=== PATIENT | female | born 1965 | race American Indian/Alaskan Native ===

== ENCOUNTER 2017-10-28 17:40 | Emergency (ER) | payer OTHER ==
[2017-10-28 18:18] VITALS: BP 165/144
[2017-10-28 20:25] LABS: Hematocrit 34.2 % (30.3-42.9); Hemoglobin 10.9 gm/dl (10.1-14.3); Mean Corpuscular HGB Conc 32 % (30-34); Mean Corpuscular Hemoglobin 27 pg (28-32); Mean Corpuscular Volume 84 fl (79-97); Platelet Count 450 K/mm3 (140-440); Red Blood Count 4.05 M/mm3 (3.65-5.03); Red Cell Distribution Width 14.4 % (13.2-15.2)
[2017-10-28 20:32] LABS: Albumin 3.7 g/dL (3.9-5); Calcium 8.9 mg/dL (8.4-10.2)
[2017-10-28 21:53] LABS: Basophils % (Manual) 0 % (0.0-1.8); Large Platelets 1+; Platelet Estimate Consistent w Auto; RBC Morphology Normal; Total Cells Counted 100
[2017-10-28] MEDS ORDERED: NACL 0.9% 1000 ML 1,000 ML IV ONE (23:37)
[2017-10-28] MEDS ORDERED: TORADOL IV ONE (23:37)
[2017-10-28] MEDS ORDERED: ZOFRAN IV ONE (23:38)
--- NOTE | 2017-10-28 23:38 | Emergency Department Report ---
ED Abdominal Pain HPI - General Chief Complaint: Abdominal Pain Stated Complaint: ABDOMINAL PAIN, LLQ Time Seen by Provider: 10/28/17 23:25 Source: patient Mode of arrival: Ambulatory Limitations: No Limitations - History of Present Illness Initial Comments: 52 yo seen urgent care last week she likely had a UTI was started on Keflex. She does have a history of kidney stones in the past she ended up seeing her regular doctor last week that ordered an outpatient CT. However she is still having pain and she came to the ED tonight to be seen .also has outpatient follow-up with a urologist. She was given FOR pain tramadol at the urgent care and it's not helping she is here with left sided abdominal pain and left flank pain with nausea. She denies any vomiting she denies any fever she denies any vaginal bleeding she has had a hysterectomy. She denies any vaginal discharge. She is passing gas w. normal bowel movements no diarrhea no black or bloody stool no syncope no fever no headache no chest pain.no shaking chills or fever does have of a history of previous bariatric surgery MD Complaint: abdominal pain, flank pain -: Gradual, days(s) Location: LUQ, L flank Migration to: LLQ Severity: mild, moderate Quality: cramping Consistency: intermittent Improves With: nothing Associated Symptoms: nausea. denies: vomiting, diarrhea, fever, chills, constipation, hematemesis, hematochezia, melena, anorexia, syncope - Related Data LMP (females 10-50): other (hyst) Previous Rx's Medication Instructions Recorded Last Taken Type Ondansetron [Zofran Odt] 4 mg PO TID PRN #10 tab.rapdis 10/29/17 Unknown Rx oxyCODONE /ACETAMINOPHEN [Percocet 1 tab PO Q6HR PRN #10 tablet 10/29/17 Unknown Rx 5/325] Allergies Allergy/AdvReac Type Severity Reaction Status Date / Time No Known Allergies Allergy Unverified 10/28/17 18:20 ED Review of Systems ROS: Stated complaint: ABDOMINAL PAIN, LLQ Other details as noted in HPI Comment: All other systems reviewed and negative Constitutional: denies: diaphoresis, fever, malaise, weakness ENT: denies: dental pain, hearing loss, epistaxis Respiratory: denies: shortness of breath, SOB with exertion, SOB at rest, stridor Cardiovascular: denies: chest pain, palpitations, dyspnea on exertion, orthopnea , edema, syncope, paroxysmal nocturnal dyspnea Gastrointestinal: abdominal pain, nausea. denies: vomiting, diarrhea, constipation, hematemesis, melena, hematochezia Genitourinary: denies: hematuria, discharge, abnormal menses Musculoskeletal: denies: arthralgia, myalgia Neurological: denies: headache, weakness, numbness, paresthesias, confusion, abnormal gait, vertigo Hematological/Lymphatic: denies: easy bruising, swollen glands ED Past Medical Hx - Past Medical History Additional medical history: kidney stones - Surgical History Past Surgical History?: No - Social History Smoking Status: Never Smoker Substance Use Type: None - Medications Home Medications: Home Medications Medication Instructions Recorded Confirmed Last Taken Type Ondansetron [Zofran Odt] 4 mg PO TID PRN #10 tab.rapdis 10/29/17 Unknown Rx oxyCODONE /ACETAMINOPHEN [Percocet 1 tab PO Q6HR PRN #10 tablet 10/29/17 Unknown Rx 5/325] ED Physical Exam - General Limitations: No Limitations General appearance: alert, anxious - Head Head exam: Present: atraumatic, normocephalic - Eye Eye exam: Present: PERRL, EOMI - ENT ENT exam: Present: normal exam, normal orophraynx - Neck Neck exam: Present: normal inspection. Absent: tenderness, meningismus - Respiratory Respiratory exam: Present: normal lung sounds bilaterally. Absent: respiratory distress, wheezes, rales, rhonchi, stridor, chest wall tenderness, accessory muscle use, decreased breath sounds, prolonged expiratory - Cardiovascular Cardiovascular Exam: Present: regular rate, normal rhythm, normal heart sounds. Absent: irregular rhythm, diastolic murmur, rubs, gallop - GI/Abdominal GI/Abdominal exam: Present: soft, tenderness, other (positive CVA tenderness left questionable mild left upper quadrant tenderness to deep palpation no rebound or guarding). Absent: distended, guarding, rebound, rigid, mass, pulsatile mass - Extremities Exam Extremities exam: Present: normal inspection, normal capillary refill. Absent: pedal edema, joint swelling, calf tenderness - Back Exam Back exam: Present: normal inspection, CVA tenderness (L). Absent: CVA tenderness (R), muscle spasm, paraspinal tenderness, vertebral tenderness - Neurological Exam Neurological exam: Present: alert, oriented X3, CN II-XII intact. Absent: motor sensory deficit - Psychiatric Psychiatric exam: Present: normal affect, anxious. Absent: homicidal ideation, suicidal ideation - Skin Skin exam: Absent: cyanosis, diaphoretic, erythema, urticaria, vesicles, petechiae, pallor, ecchymosis ED Course Vital Signs 10/28/17 10/28/17 18:13 23:57 Temperature 98.5 F Pulse Rate 77 Respiratory 16 Rate Blood Pressure 165/144 O2 Sat by Pulse 98 95 Oximetry - Reevaluation(s) Reevaluation #1: 10/29/17 00:01 Patient was placed in room, pain control was instituted, laboratory studies were ordered as well as CT, vs:iir=[id number], remainder vss, afeb 10/29/17 00:02 ED Medical Decision Making - Lab Data Result diagrams: 10/28/17 19:40 10/28/17 19:40 - Radiology Data Radiology results: report reviewed - Medical Decision Making Ct result shows chronic left hydronephrosis with 3 partially obstructing stones one is 10 mm.pt was hydrated, ivf and pain control, bun is22 cr is 1.3. case is d/w gu Dr. jacobs, case d/w mac, pt is improved in ed, nontoxic, nl wbc, vss and afeb, pt is likely outpt candidate and they can see pt in am, npo after midnight. no shaking chills or fever and nl wbc.and stable for outpt f/u in am Critical care attestation.: If time is entered above; I have spent that time in minutes in the direct care of this critically ill patient, excluding procedure time. ED Disposition Clinical Impression: Ureterolithiasis Disposition: DC-01 TO HOME OR SELFCARE Is pt being admited?: No Condition: Stable Instructions: Abdominal Pain (ED), Kidney Stones (ED) Additional Instructions: See Dr. Jacobsat 0845 a.m. tomorrow return for alarming symptoms nothing TO eat or drink after midnight., Continue your antibiotics Prescriptions: Ondansetron [Zofran Odt] 4 mg PO TID PRN #10 tab.rapdis PRN Reason: Nausea oxyCODONE /ACETAMINOPHEN [Percocet 5/325] 1 tab PO Q6HR PRN #10 tablet PRN Reason: Pain Referrals: PRIMARY CARE, [Primary Care Provider] - 3-5 Days Time of Disposition: 01:08
--- NOTE | 2017-10-29 00:24 | Cat Scan Report ---
FINAL REPORT EXAM: CT ABDOMEN PELVIS WO CON HISTORY: flank pain NATHAN BACK PAIN MAINLY ON LEFT TECHNIQUE: Routine axial imaging was obtained of the abdomen and pelvis without oral or IV contrast. Sagittal and coronal reconstructions were reviewed. FINDINGS: The lung bases are clear. Pleural fluid is not seen. The liver, gallbladder, pancreas, and spleen appear normal. The adrenal glands appear normal. There are multiple surgical clips in the upper abdomen compatible with previous gastric bypass surgery changes. Additional surgical to seen in left side of the abdomen. There is severe left-sided hydronephrosis. There are total of 3 partially obstructing stones in the distal left ureter the largest measuring 10.4 millimeters in diameter. There are multiple 2-3 millimeter in diameter stones in the lower pole of the left kidney. The right kidney view is a prominent extrarenal pelvis. No definite stone is seen in the right ureter. There is no evidence of right-sided hydronephrosis. The bowel loops are normal in caliber. The appendix is not seen with certainty. In the pelvis the uterus and bladder appear normal. Free fluid is not seen. The skeletal structures are unremarkable. IMPRESSION: Severe chronic left-sided hydronephrosis. There are total of 3 partially obstructing stones in the distal ureter the largest measuring 10.4 millimeters in diameter. Multiple small nonobstructing stones in the lower pole of left kidney. Previous gastric bypass surgery changes.
[2017-10-29] MEDS ORDERED: DILAUDID IV ONE (01:10)
[2017-10-29] MEDS ORDERED: ZOFRAN ODT PO ONE (01:11)
== END 2017-10-29 04:43 | disposition home or self-care (01) ==
LOC: ED 17:40
DX: N20.1 Calculus of ureter (principal)
CPT/HCPCS: 36415; 74176; 80053; 83690; 85007; 85025; 96361; 96374; 96375; 99284; J1170; J1885; J2405; J7030; Q0162

== ENCOUNTER 2017-10-29 10:45 | Inpatient (IN) | payer OTHER ==
[2017-10-29] MEDS ORDERED: NACL 0.9% 1000 ML 1,000 ML IV ONE (16:00)
--- NOTE | 2017-10-29 16:04 | Emergency Department Report ---
ED Female HPI - General Chief complaint: Abdominal Pain Stated complaint: SIDE/BACK PAIN Time Seen by Provider: 10/29/17 15:46 Source: patient Mode of arrival: Ambulatory Limitations: No Limitations - History of Present Illness Initial comments: 52-year-old female the past medical history of previous kidney stones presents to Hospital base of the flank pain for 2 weeks. Patient was seen and evaluated in the ER here last night. CT abdomen and pelvis report reviewed: Severe chronic left sided hydronephrosis. Total of 3 partially obstructing stones in the distal ureter with the largest measuring 10.4 mm in diameter. Multiple small amounts small nonobstructing stones in the lower pole of the left kidney. Previous gastric bypass surgery changes. Patient followed up with Dr. Dc this morning as instructed to return to the ER for admission and to receive a nuclear renal scan. Patient took a Percocet prior to arrival pain is controlled at this time. Patient reports that pain has been sharp, upper left flank, intermittent, with palpation, and no alleviating factors. Devine associate nausea without vomiting. No dysuria or hematuria reported. - Related Data Home Medications Medication Instructions Recorded Confirmed Last Taken Estradiol [Estrace] 1 mg PO DAILY 10/29/17 10/29/17 10/28/17 Zolpidem [Ambien] 10 mg PO QHS 10/29/17 10/29/17 10/28/17 Previous Rx's Medication Instructions Recorded Last Taken Type Ondansetron [Zofran Odt] 4 mg PO TID PRN #10 tab.rapdis 10/29/17 10/28/17 Rx oxyCODONE /ACETAMINOPHEN [Percocet 1 tab PO Q6HR PRN #10 tablet 10/29/17 Rx 5/325] Allergies Allergy/AdvReac Type Severity Reaction Status Date / Time No Known Allergies Allergy Unverified 10/28/17 18:20 ED Review of Systems ROS: Stated complaint: SIDE/BACK PAIN Other details as noted in HPI Comment: All other systems reviewed and negative Other: Constitutional: No fevers chills or weight loss Eyes: No eye pain visual changes or discharge ENT: No ear pain or throat pain Neck: Denies pain Respiratory: Denies cough wheezing shortness of breath Cardiovascular: Denies chest pain, palpitations, syncope GI: As per HPI : Denies dysuria Musculoskeletal: Denies back pain, joint swelling Skin: Denies rash, lesions, erythema Neurologic: Denies headache, numbness, weakness Psychiatric: Denies suicidal ideation, hallucinations Hematological/lymphatic: Denies easy bruising, lymphadenopathy ED Past Medical Hx - Past Medical History Additional medical history: kidney stones - Surgical History Past Surgical History?: Yes Additional Surgical History: Hysterectomy, Gastric Bypass, SBO - Social History Smoking Status: Never Smoker Substance Use Type: Alcohol - Medications Home Medications: Home Medications Medication Instructions Recorded Confirmed Last Taken Type Estradiol [Estrace] 1 mg PO DAILY 10/29/17 10/29/17 10/28/17 History Ondansetron [Zofran Odt] 4 mg PO TID PRN #10 tab.rapdis 10/29/17 10/29/17 Rx Zolpidem [Ambien] 10 mg PO QHS 10/29/17 10/29/17 10/28/17 History oxyCODONE /ACETAMINOPHEN [Percocet 1 tab PO Q6HR PRN #10 tablet 10/29/1710/28/17 Rx 5/325] ED Physical Exam - General Limitations: No Limitations - Other Other exam information: General: No limitations, patient is alert in no acute distress Head exam: Atraumatic, normocephalic Eyes exam: Normal appearance ENT: Moist mucous membrane, normal oropharynx Neck exam: Normal inspection, full range of motion Respiratory exam: Clear to auscultation bilateral, no wheezes, rales, crackles Cardiovascular: Normal rate and rhythm, normal heart sounds Abdomen: Soft, nondistended, left upper quadrant and left flank tenderness to palpation. No rebound or guarding Extremity: Full range of motion normal inspection no deformity Back: Normal Inspection, full range of motion, no tenderness Neurologic: Alert, oriented x3, cranial nerves intact, no motor or sensory deficit Psychiatric: normal affect, normal mood Skin: Warm, dry, intact ED Course Vital Signs 10/29/17 10/29/17 10/29/17 11:01 14:43 17:10 Temperature 97.9 F Pulse Rate 77 74 66 Respiratory 20 20 12 Rate Blood Pressure 108/65 106/68 Blood Pressure 122/73 [Left] O2 Sat by Pulse 97 97 99 Oximetry ED Medical Decision Making - Lab Data Result diagrams: 10/29/17 16:28 10/29/17 16:28 Lab Results 10/29/17 10/29/17 10/29/17 Range/Units 16:20 16:28 16:28 WBC 6.1 (4.5-11.0) K/mm3 RBC 3.99 (3.65-5.03) M/mm3 Hgb 10.9 (10.1-14.3) gm/dl Hct 33.3 (30.3-42.9) % MCV 83 (79-97) fl MCH 27 L (28-32) pg MCHC 33 (30-34) % RDW 14.4 (13.2-15.2) % Plt Count 401 (140-440) K/mm3 Lymph % (Auto) 17.5 (13.4-35.0) % [place] % (Auto) 13.7 H (0.0-7.3) % Eos % (Auto) 1.1 (0.0-4.3) % Baso % (Auto) 1.1 (0.0-1.8) % Lymph # 1.1 L (1.2-5.4) K/mm3 [place] # 0.8 (0.0-0.8) K/mm3 Eos # 0.1 (0.0-0.4) K/mm3 Baso # 0.1 (0.0-0.1) K/mm3 Seg Neutrophils % 66.6 (40.0-70.0) % Seg Neutrophils # 4.0 (1.8-7.7) K/mm3 Sodium 143 (137-145) mmol/L Potassium 4.9 (3.6-5.0) mmol/L Chloride 104.3 (98-107) mmol/L Carbon Dioxide 20 L (22-30) mmol/L Anion Gap 24 mmol/L BUN 23 H (7-17) mg/dL Creatinine 1.3 H (0.7-1.2) mg/dL Estimated GFR 52 ml/min BUN/Creatinine Ratio 18 % Glucose 79 (65-100) mg/dL POC Glucose 74 (70-105) Calcium 8.8 (8.4-10.2) mg/dL - Medical Decision Making Labs from yesterday reviewed. CT from yesterday reviewed. Patient be admitted through the ER per Dr. Restrepo request for further kidney stone treatment - Differential Diagnosis renal colic, UTI, obstructive uropathy Critical Care Time: No Critical care attestation.: If time is entered above; I have spent that time in minutes in the direct care of this critically ill patient, excluding procedure time. ED Disposition Clinical Impression: Ureterolithiasis, Renal colic on left side, Hydronephrosis Disposition: OP ADMIT IP TO THIS HOSP Is pt being admited?: Yes Condition: Stable Time of Disposition: 16:03 (Dr das/hosp)
[2017-10-29 17:01] LABS: Calcium 8.8 mg/dL (8.4-10.2)
[2017-10-29 17:31] LABS: Basophils # (Auto) 0.1 K/mm3 (0.0-0.1); Basophils % (Auto) 1.1 % (0.0-1.8); Eosinophils # (Auto) 0.1 K/mm3 (0.0-0.4); Eosinophils % (Auto) 1.1 % (0.0-4.3); Hematocrit 33.3 % (30.3-42.9); Hemoglobin 10.9 gm/dl (10.1-14.3); Lymphocytes # (Auto) 1.1 K/mm3 (1.2-5.4); Lymphocytes % (Auto) 17.5 % (13.4-35.0); Mean Corpuscular HGB Conc 33 % (30-34); Mean Corpuscular Hemoglobin 27 pg (28-32); Mean Corpuscular Volume 83 fl (79-97); Monocytes # (Auto) 0.8 K/mm3 (0.0-0.8); Monocytes % (Auto) 13.7 % (0.0-7.3); Platelet Count 401 K/mm3 (140-440); Red Blood Count 3.99 M/mm3 (3.65-5.03); Red Cell Distribution Width 14.4 % (13.2-15.2)
[2017-10-29] MEDS ORDERED: ZOFRAN IV PRN (19:24)
[2017-10-29] MEDS ORDERED: AMBIEN PO PRN (19:46)
[2017-10-29] MEDS: DILAUDID IV PRN (19:49)
[2017-10-29] MEDS: BENADRYL IV PRN (21:08)
--- NOTE | 2017-10-29 23:55 | Event Note ---
Date: 10/29/17 52 year old female with left sided renal calculi who presents with left sided flank pain. CT demonstrates extensive calculi in the lower most anterior calyx of the left kidney and obstructing left sided calculi in the distal ureter. Right extrarenal pelvis without hydronephrosis and left sided moderate hydronephrosis. Patient has mild renal insufficiency. NPO after MN. Nuclear medicine test in AM. Will discuss with Dr. Jasso.
--- NOTE | 2017-10-29 23:56 | Event Note ---
Date: 10/29/17 See dictated H/P in reports L Renal stones with Hydronephrosis-Nuclear scan onOct to assess functionality of Rt Kidney D/w Dr Jasso. Ureter stent versus Nephrectomy depending on Functionalityof L Kidney
[2017-10-30] MEDS ORDERED: PERCOCET 5/325 PO PRN (00:49)
[2017-10-30] MEDS ORDERED: MILK OF MAGNESIA PO PRN (00:50)
[2017-10-30] MEDS ORDERED: TYLENOL PO PRN (00:50)
[2017-10-30] MEDS ORDERED: DULCOLAX PR PRN (00:50)
[2017-10-30] MEDS ORDERED: MORPHINE IV PRN (01:42)
[2017-10-30] MEDS: DILAUDID IV PRN ×4 (05:46→22:07)
[2017-10-30] MEDS: ZOFRAN IV PRN ×2 (05:50→11:11)
[2017-10-30] MEDS: BENADRYL IV PRN ×2 (05:51→16:35)
--- NOTE | 2017-10-30 07:55 | History and Physical Report ---
CHIEF COMPLAINT: Left flank pain for 2 weeks. HISTORY OF PRESENT ILLNESS: A 52-year-old -[place] female who comes in for left flank pain of 2 weeks' duration. The patient has recurrent partial obstructing stones in the distal ureter with the largest measuring 10.4 mm. The patient was seen by Dr. Jasso shows up for a possible ureter stent. I talked with Dr. Jasso. He also wants to make sure that the left kidney is functioning because of the longstanding hydronephrosis. No fever, no chills. PAST MEDICAL HISTORY: Significant for recurrent kidney stones. No hypertension. PAST SURGICAL HISTORY: Hysterectomy, gastric bypass and small-bowel obstruction. SOCIAL HISTORY: Does not smoke. Alcohol occasionally. FAMILY HISTORY: Hypertension. CURRENT MEDICATIONS: Estradiol 1 mg once a day, Zofran 4 mg 3 times a day, zolpidem 10 mg p.o. at bedtime, Percocet 1 tablet 5/325 mg q.6h. p.r.n. REVIEW OF SYSTEMS: Other than the left flank pain, essentially negative. A 14-point review of systems done. No shortness of breath. No fever, no chills. Altered sensorium. PHYSICAL EXAMINATION: GENERAL: Middle-aged female, cooperative during examination, in slight distress secondary to pain. VITAL SIGNS: Blood pressure is 123/80, temperature is 98.7, pulse . HEENT: Unremarkable. Pupils equal and reactive. NECK: Supple, no lymphadenopathy, no thyromegaly. LUNGS: Clear to auscultation and percussion. Good air entry. CARDIOVASCULAR: S1, S2 heard. No gallop, no murmur, no rub. Apical impulse in left fifth intercostal space and midclavicular line. ABDOMEN: Soft and benign. No hepatosplenomegaly. No guarding, no rigidity. Hernial orifices are normal. EXTREMITIES: Good pedal pulses. No pedal edema. ABDOMEN: The examination of the abdomen, there is a slight left flank tenderness present. No guarding, no rigidity. CT of the abdomen shows 3 stones in the left ureter and left hydronephrosis. LABORATORY DATA: Otherwise normal. BUN and creatinine slightly high at 23 and 1.3. ASSESSMENT AND PLAN: 1. Left renal colic with hydronephrosis. The patient due for ureteral stent placement on 10/30/2017. Discussed with Dr. Jasso. Dr. Jasso wants to make sure that the left kidney is functioning. If the left kidney is not functioning, he will go for a left nephrectomy. Nuclear scan pending on 10/30/2017. 2. Acute pain. Pain management. IV Dilaudid and Toradol. 3. Acute kidney injury. IV fluids for the time being. BUN and creatinine is 23 and 1.3. 4. Deep venous thrombosis prophylaxis, Lovenox 40 mg subcutaneous daily. JOB# [id number] VSM/NTS
--- NOTE | 2017-10-30 09:28 | Event Note ---
Date: 10/30/17 52 year old female with left sided renal calculi and hydronephrosis. Renal cortical thickness is similar on both sides suggesting residual kidney function. Dr. Jasso will perform cystoscopy/stent placement on thursday. If unsuccessful or clinical situation changes, may need percutaneous nephrostomy. Restored diet.
--- NOTE | 2017-10-30 10:42 | Progress Note ---
Assessment and Plan Assessment and plan: Patient is a 52 year old female with left flank pain x 2 weeks, diagnosed with obstructing ureter stones with largest measuring 10.4mm and hydronephrosis. Per patient she completed a treatment for UTI in the last week with ciprofloxacin Left renal calculi with hydronephrosis Left Peritoneal irritation HTN Plan: Pain control Supportive care with IVF Possibly cystoscopy vs nephrectomy Await Urology input. Patient wants to remain in house till procedure, again will defer to Urologist. DVT/GI prophy Plan discussed with patient and vascular surgeon History Interval history: Patient seen and examined in no acute distress. still with back pain. she denies any shortness of breath, nausea, vomiting. she denies any fever. Hospitalist Physical - Constitutional Vitals: Temp Pulse Resp BP Pulse Ox 99.2 F 83 20 110/66 96 10/30/17 07:33 10/30/17 07:33 10/30/17 07:33 10/30/17 07:33 10/30/17 07:33 General appearance: Present: no acute distress, well-nourished - EENT Eyes: Present: PERRL, EOM intact ENT: clear oral mucosa - Neck Neck: Present: supple, normal ROM - Respiratory Respiratory effort: normal Respiratory: bilateral: CTA - Cardiovascular Rhythm: regular Heart Sounds: Present: S1 & S2. Absent: systolic murmur, diastolic murmur - Extremities Extremities: no ischemia, pulses intact, pulses symmetrical, No edema, normal temperature, Full ROM Peripheral Pulses: within normal limits - Abdominal General gastrointestinal: soft, tender (llq), non-distended, normal bowel sounds - Integumentary Integumentary: Present: clear, warm, dry - Psychiatric Psychiatric: appropriate mood/affect, intact judgment & insight - Neurologic Neurologic: CNII-XII intact - Allied Health Allied health notes reviewed: nursing Results - Labs CBC & Chem 7: 10/29/17 16:28 10/29/17 16:28 Labs: Laboratory Last Values WBC 6.1 K/mm3 (4.5-11.0) 10/29/17 16:28 RBC 3.99 M/mm3 (3.65-5.03) 10/29/17 16:28 Hgb 10.9 gm/dl (10.1-14.3) 10/29/17 16:28 Hct 33.3 % (30.3-42.9) 10/29/17 16: MCV 83 fl (79-97) 10/29/17 16: MCH 27 pg (28-32) L 10/29/17 16: MCHC 33 % (30-34) 10/29/17 16: RDW 14.4 % (13.2-15.2) 10/29/17 16: Plt Count 401 K/mm3 (140-440) 10/29/17 16: Lymph % (Auto) 17.5 % (13.4-35.0) 10/29/17 16: [place] % (Auto) 13.7 % (0.0-7.3) H 10/29/17 16: Eos % (Auto) 1.1 % (0.0-4.3) 10/29/17 16: Baso % (Auto) 1.1 % (0.0-1.8) 10/29/17 16: Lymph # 1.1 K/mm3 (1.2-5.4) L 10/29/17 16: [place] # 0.8 K/mm3 (0.0-0.8) 10/29/17 16: Eos # 0.1 K/mm3 (0.0-0.4) 10/29/17 16: Baso # 0.1 K/mm3 (0.0-0.1) 10/29/17 16: Seg Neutrophils % 66.6 % (40.0-70.0) 10/29/17 16: Seg Neutrophils # 4.0 K/mm3 (1.8-7.7) 10/29/17 16: Sodium 143 mmol/L (137-145) 10/29/17 16: Potassium 4.9 mmol/L (3.6-5.0) 10/29/17 16: Chloride 104.3 mmol/L (98-107) 10/29/17 16: Carbon Dioxide 20 mmol/L (22-30) L 10/29/17 16: Anion Gap 24 mmol/L 10/29/17 16:28 BUN 23 mg/dL (7-17) H 10/29/17 16:28 Creatinine 1.3 mg/dL (0.7-1.2) H 10/29/17 16:28 Estimated GFR 52 ml/min 10/29/17 16:28 BUN/Creatinine Ratio 18 % 10/29/17 16:28 Glucose 79 mg/dL (65-100) 10/29/17 16:28 POC Glucose 74 (70-105) 10/29/17 16:20 Calcium 8.8 mg/dL (8.4-10.2) 10/29/17 16:28
--- NOTE | 2017-10-30 11:33 | Nuclear Medicine Report ---
NUCLEAR MEDICINE RENAL SCAN ROUTINE History: Kidney stone, nephrolithiasis, evaluate renal function. Technique: Posterior perfusion and function images were obtained following 5 mCi of technetium 99m MAG3 intravenously. Renogram curves were constructed. Comparison: No previous nuclear medicine scan. Correlation is made with the CT abdomen pelvis without contrast dated 10/29/17. Findings: The posterior perfusion and posterior function images demonstrate asymmetric activity in the kidneys. There is decreased perfusion and function of the left kidney compared to the right. Perfusion and function of the right kidney appears within normal limits. Peak flow to the right kidney is approximately 15 seconds. Peak flow to left kidney is greater than 60 seconds. The posterior function images demonstrate poor uptake and excretion of radiotracer on the left side. Split function measures 67% right kidney and 33% left kidney. Impression: Poor flow and function involving the left kidney. Split function measures 67% right kidney and 33% left kidney.
[2017-10-30] MEDS ORDERED: PNEUMOVAX 23 IM ONE (12:00)
[2017-10-30] MEDS ORDERED: Fluarix Quad 2017-2018(36 MOS+ IM ONE (12:00)
[2017-10-30 12:01] LABS: Bacteria,Urine 2+ /HPF (Negative); Bilirubin,Urine NEG (Negative); Blood,Urine LG (Negative); Color,Urine Yellow (Yellow); Mucus,Urine FEW /HPF; Nitrite,Urine NEG (Negative)
[2017-10-30] MEDS: ESTRACE PO SCH (12:20)
--- NOTE | 2017-10-30 12:40 | Progress Note ---
Assessment and Plan 33% fx LK will sched cysto aware may need perc all disccussed informed consentr to sched dictated Subjective Date of service: 10/30/17 Principal diagnosis: L hydro stones Objective - Constitutional Vitals: Vital Signs - 12hr 10/30/17 07:33 Temperature 99.2 F Pulse Rate 83 Respiratory 20 Rate Blood Pressure 110/66 O2 Sat by Pulse 96 Oximetry General appearance: Present: no acute distress - Neck Neck: supple - Respiratory Respiratory effort: normal Extremities: no ischemia - Gastrointestinal General gastrointestinal: Present: tender - Labs CBC & Chem 7: 10/29/17 16:28 10/29/17 16:28 Labs: Abnormal lab results 10/29/17 10/29/17 Range/Units 16:28 16:28 MCH 27 L (28-32) pg [place] % (Auto) 13.7 H (0.0-7.3) % Lymph # 1.1 L (1.2-5.4) K/mm3 Carbon Dioxide 20 L (22-30) mmol/L BUN 23 H (7-17) mg/dL Creatinine 1.3 H (0.7-1.2) mg/dL
[2017-10-30] MEDS: LEVAQUIN 500MG/100ML 500 MG/100 ML BAG IV SCH (16:35)
[2017-10-30] MEDS: ZOFRAN ODT PO PRN (16:42)
[2017-10-30] MEDS: NACL 0.9% 1000 ML 1,000 ML IV SCH (16:49)
[2017-10-30] MEDS: AMBIEN PO SCH (22:06)
[2017-10-31] MEDS: ZOFRAN IV PRN ×3 (05:46→20:15)
[2017-10-31] MEDS: BENADRYL IV PRN ×3 (05:46→20:15)
[2017-10-31] MEDS: DILAUDID IV PRN ×4 (05:47→20:15)
[2017-10-31] MEDS: NACL 0.9% 1000 ML 1,000 ML IV SCH ×2 (07:16→22:44)
[2017-10-31 07:39] LABS: Calcium 8.3 mg/dL (8.4-10.2)
--- NOTE | 2017-10-31 08:39 | Consultation ---
HISTORY OF PRESENT ILLNESS: The patient is a 52-year-old woman who we saw in the office yesterday, we are scheduling her for cystoscopy. She has had stones for over a year. She did not get it evaluated because her pain went away and she did not seek medical advice. She had moderate pain yesterday. We tried to schedule her, we were told we were not able to. So, she came back to the Emergency Room. She is now admitted for intermittent pain control and IV antibiotics. She is here with her mother, all options were discussed. PAST MEDICAL HISTORY: As mentioned above, history of stones, and low grade fever on and off. PAST SURGICAL HISTORY: Denied surgery. Other surgery, hysterectomy, gastric bypass, small-bowel obstruction. SOCIAL HISTORY: Negative. FAMILY HISTORY: Negative. MEDICATIONS: Estrace, pain medication and antinausea medication. REVIEW OF SYSTEMS: As mentioned above, left flank pain. PHYSICAL EXAMINATION: GENERAL: She is awake, alert. She is in no distress but some mild discomfort. ABDOMEN: Soft, nondistended, mild left flank pain. GENITALIA: Done yesterday was unremarkable. IMPRESSION AND PLAN: Left hydronephrosis, 33% function on her nuclear scan. We will try our best to get a stent passed the stone, likely staged procedures in terms of the stones, but we will try to get the stone out if possible. Otherwise, she will need a percutaneous nephrostomy. The patient understands. We will make her n.p.o. and do it over the next few days, give her IV antibiotics. JOB# [id number] ROB/ROSCOE
[2017-10-31] MEDS: ESTRACE PO SCH (09:40)
[2017-10-31] MEDS: LEVAQUIN 500MG/100ML 500 MG/100 ML BAG IV SCH (09:40)
[2017-10-31] MEDS: ZOFRAN ODT PO PRN (09:57)
--- NOTE | 2017-10-31 17:49 | Progress Note ---
Assessment and Plan Assessment and plan: Patient is a 52 year old female with left flank pain x 2 weeks, diagnosed with obstructing ureter stones with largest measuring 10.4mm and hydronephrosis. Per patient she completed a treatment for UTI in the last week with ciprofloxacin Left renal calculi with hydronephrosis Left Peritoneal irritation HTN DOMENICO Plan: Pain control Supportive care with IVF cYSTOSCOPY ON THURSDAY uROLOGY INPUT NOTED Continue with IVF before the better Await Urology input.. DVT/GI prophy Plan discussed with patient and vascular surgeon History Interval history: Patient seen and examined in no acute distress. still with back pain. she denies any shortness of breath, nausea, vomiting. she denies any fever. Hospitalist Physical - Physical exam Narrative exam: General appearance: Present: no acute distress, well-nourished - EENT Eyes: Present: PERRL, EOM intact ENT: clear oral mucosa - Neck Neck: Present: supple, normal ROM - Respiratory Respiratory effort: normal Respiratory: bilateral: CTA - Cardiovascular Rhythm: regular Heart Sounds: Present: S1 & S2. Absent: systolic murmur, diastolic murmur - Extremities Extremities: no ischemia, pulses intact, pulses symmetrical, No edema, normal temperature, Full ROM Peripheral Pulses: within normal limits - Abdominal General gastrointestinal: soft, tender (llq), non-distended, normal bowel sounds - Integumentary Integumentary: Present: clear, warm, dry - Psychiatric Psychiatric: appropriate mood/affect, intact judgment & insight - Neurologic Neurologic: CNII-XII intact - Allied Health Allied health notes rev - Constitutional Vitals: Temp Pulse Resp BP Pulse Ox 98.4 F 66 18 120/80 95 10/31/17 15:44 10/31/17 07:36 10/31/17 15:44 10/31/17 15:44 10/31/17 07:36 General appearance: Present: no acute distress, well-nourished Results - Labs CBC & Chem 7: 10/29/17 16:28 10/31/17 06:26 Labs: Laboratory Last Values WBC 6.1 K/mm3 (4.5-11.0) 10/29/17 16:28 RBC 3.99 M/mm3 (3.65-5.03) 10/29/17 16:28 Hgb 10.9 gm/dl (10.1-14.3) 10/29/17 16:28 Hct 33.3 % (30.3-42.9) 10/29/17 16: MCV 83 fl (79-97) 10/29/17 16: MCH 27 pg (28-32) L 10/29/17 16:28 MCHC 33 % (30-34) 10/29/17 16:28 RDW 14.4 % (13.2-15.2) 10/29/17 16:28 Plt Count 401 K/mm3 (140-440) 10/29/17 16:28 Lymph % (Auto) 17.5 % (13.4-35.0) 10/29/17 16:28 [place] % (Auto) 13.7 % (0.0-7.3) H 10/29/17 16:28 Eos % (Auto) 1.1 % (0.0-4.3) 10/29/17 16:28 Baso % (Auto) 1.1 % (0.0-1.8) 10/29/17 16:28 Lymph # 1.1 K/mm3 (1.2-5.4) L 10/29/17 16:28 [place] # 0.8 K/mm3 (0.0-0.8) 10/29/17 16:28 Eos # 0.1 K/mm3 (0.0-0.4) 10/29/17 16:28 Baso # 0.1 K/mm3 (0.0-0.1) 10/29/17 16:28 Seg Neutrophils % 66.6 % (40.0-70.0) 10/29/17 16:28 Seg Neutrophils # 4.0 K/mm3 (1.8-7.7) 10/29/17 16:28 Sodium 144 mmol/L (137-145) 10/31/17 06:26 Potassium 4.3 mmol/L (3.6-5.0) 10/31/17 06:26 Chloride 108.5 mmol/L (98-107) H 10/31/17 06:26 Carbon Dioxide 22 mmol/L (22-30) 10/31/17 06:26 Anion Gap 18 mmol/L 10/31/17 06:26 BUN 30 mg/dL (7-17) H 10/31/17 06:26 Creatinine 1.6 mg/dL (0.7-1.2) H 10/31/17 06:26 Estimated GFR 41 ml/min 10/31/17 06:26 BUN/Creatinine Ratio 19 % 10/31/17 06:26 Glucose 97 mg/dL (65-100) 10/31/17 06:26 POC Glucose 74 (70-105) 10/29/17 16:20 Calcium 8.3 mg/dL (8.4-10.2) L 10/31/17 06:26 Urine Color Yellow (Yellow) 10/30/17 Unknown Urine Turbidity Clear (Clear) 10/30/17 Unknown Urine pH 5.0 (5.0-7.0) 10/30/17 Unknown Ur Specific [place] 1.021 (1.003-1.030) 10/30/17 Unknown Urine Protein 100 mg/dl mg/dL (Negative) 10/30/17 Unknown Urine Glucose (UA) Neg mg/dL (Negative) 10/30/17 Unknown Urine Ketones 20 mg/dL (Negative) 10/30/17 Unknown Urine Blood Lg (Negative) 10/30/17 Unknown Urine Nitrite Neg (Negative) 10/30/17 Unknown Urine Bilirubin Neg (Negative) 10/30/17 Unknown Urine Urobilinogen 2.0 mg/dL (<2.0) 10/30/17 Unknown Ur Leukocyte Esterase Neg (Negative) 10/30/17 Unknown Urine WBC (Auto) 4.0 /HPF (0.0-6.0) 10/30/17 Unknown Urine RBC (Auto) 27.0 /HPF (0.0-6.0) 10/30/17 Unknown U Epithel Cells (Auto) 4.0 /HPF (0-13.0) 10/30/17 Unknown Urine Bacteria (Auto) 2+ /HPF (Negative) 10/30/17 Unknown Urine Mucus Few /HPF 10/30/17 Unknown
[2017-10-31] MEDS: AMBIEN PO SCH (22:44)
[2017-11-01] MEDS: DILAUDID IV PRN ×5 (00:36→20:33)
[2017-11-01] MEDS: BENADRYL IV PRN ×3 (04:22→20:33)
[2017-11-01] MEDS: ZOFRAN IV PRN ×4 (04:22→20:33)
[2017-11-01 06:48] LABS: Calcium 7.7 mg/dL (8.4-10.2)
[2017-11-01] MEDS: LEVAQUIN 500MG/100ML 500 MG/100 ML BAG IV SCH (09:25)
[2017-11-01] MEDS: ESTRACE PO SCH (09:25)
[2017-11-01] MEDS: NACL 0.9% 1000 ML 1,000 ML IV SCH ×2 (12:57→20:34)
--- NOTE | 2017-11-01 14:05 | Progress Note ---
Assessment and Plan - Patient Problems (1) Hydronephrosis Current Visit: Yes Status: Acute Plan to address problem: Hydronephrosis secondary to stone. Cystoscopy planned for a.m. Pain management effective. (2) Renal colic on left side Current Visit: Yes Status: Acute (3) Ureterolithiasis Current Visit: Yes Status: Acute History Interval history: At present patient feels good pain well controlled. Only itching with the Benadryl with pain medications. Patient scheduled for cystoscopy in the a.m. All questions and concerns answered to his satisfaction. Hospitalist Physical - Constitutional Vitals: Temp Pulse Resp BP Pulse Ox 98.5 F 75 16 111/67 95 11/01/17 07:46 11/01/17 07:46 11/01/17 07:46 11/01/17 07:46 11/01/17 07:46 General appearance: Present: no acute distress, well-nourished - EENT Eyes: Present: PERRL, EOM intact ENT: hearing intact, clear oral mucosa, dentition normal - Neck Neck: Present: supple, normal ROM - Respiratory Respiratory effort: normal Respiratory: bilateral: CTA - Cardiovascular Rhythm: regular Heart Sounds: Present: S1 & S2 - Extremities Extremities: no ischemia, pulses intact, No edema, normal temperature, normal color Peripheral Pulses: within normal limits - Abdominal General gastrointestinal: soft, non-tender, non-distended - Psychiatric Psychiatric: appropriate mood/affect, intact judgment & insight - Neurologic Neurologic: CNII-XII intact, moves all extremities, gait normal Results - Labs CBC & Chem 7: 10/29/17 16:28 11/01/17 05:19 Labs: Laboratory Last Values WBC 6.1 K/mm3 (4.5-11.0) 10/29/17 16:28 RBC 3.99 M/mm3 (3.65-5.03) 10/29/17 16:28 Hgb 10.9 gm/dl (10.1-14.3) 10/29/17 16:28 Hct 33.3 % (30.3-42.9) 10/29/17 16:28 MCV 83 fl (79-97) 10/29/17 16:28 MCH 27 pg (28-32) L 10/29/17 16:28 MCHC 33 % (30-34) 10/29/17 16:28 RDW 14.4 % (13.2-15.2) 10/29/17 16:28 Plt Count 401 K/mm3 (140-440) 10/29/17 16:28 Lymph % (Auto) 17.5 % (13.4-35.0) 10/29/17 16:28 [place] % (Auto) 13.7 % (0.0-7.3) H 10/29/17 16:28 Eos % (Auto) 1.1 % (0.0-4.3) 10/29/17 16:28 Baso % (Auto) 1.1 % (0.0-1.8) 10/29/17 16:28 Lymph # 1.1 K/mm3 (1.2-5.4) L 10/29/17 16:28 [place] # 0.8 K/mm3 (0.0-0.8) 10/29/17 16:28 Eos # 0.1 K/mm3 (0.0-0.4) 10/29/17 16:28 Baso # 0.1 K/mm3 (0.0-0.1) 10/29/17 16:28 Seg Neutrophils % 66.6 % (40.0-70.0) 10/29/17 16:28 Seg Neutrophils # 4.0 K/mm3 (1.8-7.7) 10/29/17 16:28 Sodium 141 mmol/L (137-145) 11/01/17 05:19 Potassium 4.4 mmol/L (3.6-5.0) 11/01/17 05:19 Chloride 107.5 mmol/L (98-107) H 11/01/17 05:19 Carbon Dioxide 21 mmol/L (22-30) L 11/01/17 05:19 Anion Gap 17 mmol/L 11/01/17 05:19 BUN 29 mg/dL (7-17) H 11/01/17 05:19 Creatinine 1.8 mg/dL (0.7-1.2) H 11/01/17 05:19 Estimated GFR 36 ml/min 11/01/17 05:19 BUN/Creatinine Ratio 16 % 11/01/17 05:19 Glucose 96 mg/dL (65-100) 11/01/17 05:19 POC Glucose 74 (70-105) 10/29/17 16:20 Calcium 7.7 mg/dL (8.4-10.2) L 11/01/17 05:19 Urine Color Yellow (Yellow) 10/30/17 Unknown Urine Turbidity Clear (Clear) 10/30/17 Unknown Urine pH 5.0 (5.0-7.0) 10/30/17 Unknown Ur Specific [place] 1.021 (1.003-1.030) 10/30/17 Unknown Urine Protein 100 mg/dl mg/dL (Negative) 10/30/17 Unknown Urine Glucose (UA) Neg mg/dL (Negative) 10/30/17 Unknown Urine Ketones 20 mg/dL (Negative) 10/30/17 Unknown Urine Blood Lg (Negative) 10/30/17 Unknown Urine Nitrite Neg (Negative) 10/30/17 Unknown Urine Bilirubin Neg (Negative) 10/30/17 Unknown Urine Urobilinogen 2.0 mg/dL (<2.0) 10/30/17 Unknown Ur Leukocyte Esterase Neg (Negative) 10/30/17 Unknown Urine WBC (Auto) 4.0 /HPF (0.0-6.0) 10/30/17 Unknown Urine RBC (Auto) 27.0 /HPF (0.0-6.0) 10/30/17 Unknown U Epithel Cells (Auto) 4.0 /HPF (0-13.0) 10/30/17 Unknown Urine Bacteria (Auto) 2+ /HPF (Negative) 10/30/17 Unknown Urine Mucus Few /HPF 10/30/17 Unknown
[2017-11-01] MEDS: AMBIEN PO SCH (22:10)
[2017-11-02] MEDS: BENADRYL IV PRN ×3 (02:08→12:50)
[2017-11-02] MEDS: ZOFRAN IV PRN ×3 (02:08→12:50)
[2017-11-02] MEDS: DILAUDID IV PRN ×4 (02:08→12:43)
--- NOTE | 2017-11-02 10:37 | Anesthesia Day of Surgery ---
Anesthesia Day of Surgery - Day of Surgery Patient Examined: Yes Patient H&P Reviewed: Yes Patient is NPO: Yes
--- NOTE | 2017-11-02 10:37 | Anesthesia Consultation ---
Anesthesia Consult and Med Hx Date of service: 11/02/17 - Airway Anesthetic Teeth Evaluation: Good ROM Head & Neck: Adequate Mental/Hyoid Distance: Adequate Mallampati Class: Class I Intubation Access Assessment: Good - Pulmonary Exam CTA: Yes - Pre-Operative Health Status ASA Pre-Surgery Classification: ASA2 Proposed Anesthetic Plan: General - Cardiovascular System Hx Hypertension: Yes (per chart. patient denies) - Central Nervous System Hx Psychiatric Problems: Yes (insomnia. on ambien) - Endocrine Hx Renal Disease: Yes (left hydronephrosis. nephrolithiasis) - Additional Comments Anesthesia Medical History Comments: Informed consent obtained
[2017-11-02] MEDS ORDERED: VERSED IV NR (11:00)
[2017-11-02] MEDS ORDERED: PEPCID IV NR (11:00)
[2017-11-02] MEDS ORDERED: XYLOCAINE MPF 2% ONE (11:03)
[2017-11-02] MEDS ORDERED: DIPRIVAN 10 MG/ML IV ONE (11:03)
[2017-11-02] MEDS ORDERED: DILAUDID ONE (11:03)
[2017-11-02] MEDS: NACL 0.9% 1000 ML 1,000 ML IV SCH (11:10)
[2017-11-02] MEDS: LEVAQUIN 500MG/100ML 500 MG/100 ML BAG IV SCH (11:11)
[2017-11-02] MEDS: ESTRACE PO SCH (11:42)
[2017-11-02] MEDS ORDERED: ZOFRAN ONE (11:51)
--- NOTE | 2017-11-02 11:53 | Post Operative Note ---
Date of procedure: 11/02/17 Pre-op diagnosis: severe l hydro stones Post-op diagnosis: same Findings: purulent chronic obst LK Procedure: cysto rpg j stent Anesthesia: GETA Surgeon: CLAIRE ARMSTRONG Estimated blood loss: none Pathology: list (c and s) Specimen disposition: to lab Condition: stable Disposition: PACU
--- NOTE | 2017-11-02 11:55 | Discharge Summary ---
Short Stay Discharge Plan Activity: other (no straining ) Weight Bearing Status: Full Weight Bearing Diet: regular Special Instructions: other (inc fluids ) Durable Medical Equipment Needed Upon Discharge: other (home on po antibiotics ) Follow up with: PHOENIX LANIER MD [Primary Care Provider] - 7 Days CLAIRE ARMSTRONG MD [Staff Physician] - 7 Days
--- NOTE | 2017-11-02 12:00 | Progress Note ---
Assessment and Plan purulent material stent placed not safe to do ureteroscopy stent drained pus needs f/u ureteroscopy Subjective Principal diagnosis: L hydro stones Objective - Constitutional Vitals: Vital Signs - 12hr 11/02/17 11/02/17 00:10 07:45 Temperature 98.5 F 98.6 F Pulse Rate 88 73 Respiratory 16 18 Rate Blood Pressure 131/72 124/70 O2 Sat by Pulse 98 96 Oximetry General appearance: Present: no acute distress - Labs CBC & Chem 7: 10/29/17 16:28 11/01/17 05:19
--- NOTE | 2017-11-02 12:33 | Operative Report ---
PREOPERATIVE DIAGNOSES: Severe left hydronephrosis, left distal ureteral stones chronically obstructing for over a year. POSTOPERATIVE DIAGNOSIS: Evidence of lots of debris and purulent material from left kidney. PROCEDURE: Cystoscopy, left retrograde balloon dilatation, J stent. SURGEON: Rusty Jasso MD ANESTHESIA: General. FINDINGS: This is a woman with a severe obstruction and pain. She has had it for over a year. She intermittently sought medical advice, but could not get in to see a doctor. Even last week, we could not treat her because of coverage as an outpatient. She was admitted, she was given antibiotics, stabilized and now presents for treatment. DESCRIPTION OF PROCEDURE: The patient was brought and placed on the operating table. Following induction of anesthesia, placed in lithotomy position, prepped and draped in usual sterile fashion. Cystourethroscopy showed no bladder lesions. The retrograde showed a large stone in the left distal ureter approximately 1.3 cm. These may be 2-3 stones. A wire eventually coiled up in the kidney and we balloon dilated it, it was so tight, gently up to 4 atmospheres. We then placed a 7-[place]namese J stent. Lots of purulent material was obtained. We sent it for culture. The patient tolerated the procedure well. She has been on antibiotics. The plan will be a staged procedure. She needs followup ureteroscopy, laser treatment of the stone once this thing dilates and all her infection resolve. There was 33% function in that kidney, so we will do our best to save it. JOB# [id number] ROB/ROSCOE
--- NOTE | 2017-11-02 12:40 | Progress Note ---
Assessment and Plan - Patient Problems (1) Hydronephrosis Current Visit: Yes Status: Acute Plan to address problem: Hydronephrosis secondary to stone. Cystoscopy planned for a.m. Pain management effective. (2) Renal colic on left side Current Visit: Yes Status: Acute (3) Ureterolithiasis Current Visit: Yes Status: Acute History Interval history: Patient status post cystoscopy tolerated procedure well. Stent was placed. Patient had purulent exudate from area. Patient will have follow-up ureteroscopy. Home on by mouth antibiotics. Discharge diet visit so. Hospitalist Physical - Constitutional Vitals: Temp Pulse Resp BP Pulse Ox 98.6 F 66 14 123/67 96 11/02/17 11:59 11/02/17 12:30 11/02/17 12:30 11/02/17 12:30 11/02/17 12:30 General appearance: Present: no acute distress - EENT Eyes: Present: PERRL, EOM intact, irregular pupil ENT: hearing intact, clear oral mucosa, dentition normal - Neck Neck: Present: supple, normal ROM - Respiratory Respiratory effort: normal - Cardiovascular Rhythm: regular - Extremities Extremities: no ischemia, pulses intact, pulses symmetrical, No edema Peripheral Pulses: within normal limits - Abdominal General gastrointestinal: soft, non-tender, tender - Integumentary Integumentary: Present: clear, warm, dry - Psychiatric Psychiatric: appropriate mood/affect - Neurologic Neurologic: CNII-XII intact Results - Labs CBC & Chem 7: 10/29/17 16:28 11/01/17 05:19 Labs: Laboratory Last Values WBC 6.1 K/mm3 (4.5-11.0) 10/29/17 16:28 RBC 3.99 M/mm3 (3.65-5.03) 10/29/17 16:28 Hgb 10.9 gm/dl (10.1-14.3) 10/29/17 16:28 Hct 33.3 % (30.3-42.9) 10/29/17 16:28 MCV 83 fl (79-97) 10/29/17 16:28 MCH 27 pg (28-32) L 10/29/17 16:28 MCHC 33 % (30-34) 10/29/17 16:28 RDW 14.4 % (13.2-15.2) 10/29/17 16:28 Plt Count 401 K/mm3 (140-440) 10/29/17 16:28 Lymph % (Auto) 17.5 % (13.4-35.0) 10/29/17 16:28 [place] % (Auto) 13.7 % (0.0-7.3) H 10/29/17 16:28 Eos % (Auto) 1.1 % (0.0-4.3) 10/29/17 16:28 Baso % (Auto) 1.1 % (0.0-1.8) 10/29/17 16:28 Lymph # 1.1 K/mm3 (1.2-5.4) L 10/29/17 16:28 [place] # 0.8 K/mm3 (0.0-0.8) 10/29/17 16:28 Eos # 0.1 K/mm3 (0.0-0.4) 10/29/17 16:28 Baso # 0.1 K/mm3 (0.0-0.1) 10/29/17 16:28 Seg Neutrophils % 66.6 % (40.0-70.0) 10/29/17 16:28 Seg Neutrophils # 4.0 K/mm3 (1.8-7.7) 10/29/17 16:28 Sodium 141 mmol/L (137-145) 11/01/17 05:19 Potassium 4.4 mmol/L (3.6-5.0) 11/01/17 05:19 Chloride 107.5 mmol/L (98-107) H 11/01/17 05:19 Carbon Dioxide 21 mmol/L (22-30) L 11/01/17 05:19 Anion Gap 17 mmol/L 11/01/17 05:19 BUN 29 mg/dL (7-17) H 11/01/17 05:19 Creatinine 1.8 mg/dL (0.7-1.2) H 11/01/17 05:19 Estimated GFR 36 ml/min 11/01/17 05:19 BUN/Creatinine Ratio 16 % 11/01/17 05:19 Glucose 96 mg/dL (65-100) 11/01/17 05:19 POC Glucose 74 (70-105) 10/29/17 16:20 Calcium 7.7 mg/dL (8.4-10.2) L 11/01/17 05:19 Urine Color Yellow (Yellow) 10/30/17 Unknown Urine Turbidity Clear (Clear) 10/30/17 Unknown Urine pH 5.0 (5.0-7.0) 10/30/17 Unknown Ur Specific [place] 1.021 (1.003-1.030) 10/30/17 Unknown Urine Protein 100 mg/dl mg/dL (Negative) 10/30/17 Unknown Urine Glucose (UA) Neg mg/dL (Negative) 10/30/17 Unknown Urine Ketones 20 mg/dL (Negative) 10/30/17 Unknown Urine Blood Lg (Negative) 10/30/17 Unknown Urine Nitrite Neg (Negative) 10/30/17 Unknown Urine Bilirubin Neg (Negative) 10/30/17 Unknown Urine Urobilinogen 2.0 mg/dL (<2.0) 10/30/17 Unknown Ur Leukocyte Esterase Neg (Negative) 10/30/17 Unknown Urine WBC (Auto) 4.0 /HPF (0.0-6.0) 10/30/17 Unknown Urine RBC (Auto) 27.0 /HPF (0.0-6.0) 10/30/17 Unknown U Epithel Cells (Auto) 4.0 /HPF (0-13.0) 10/30/17 Unknown Urine Bacteria (Auto) 2+ /HPF (Negative) 10/30/17 Unknown Urine Mucus Few /HPF 10/30/17 Unknown
--- NOTE | 2017-11-02 12:44 | Discharge Summary ---
Providers - Providers Date of Admission: 10/29/17 16:10 Date of discharge: 11/02/17 Attending physician: DEVIN CHAVEZ 10/29/17 16:04 Consult to Physician [CONS] Urgent Consulting Provider: CLAIRE ARMSTRONG Reason For Exam: hydronephrosis with ureteral stones Notified:: n Primary care physician: PHOENIX LANIER Hospitalization Condition: Good Procedures: Cystoscopy which showed purulent exudate. Patient had stent placed follow-up for ureteral cystoscopy would not visits. Home by mouth antibiotics. Disposition: DC- TO HOME OR SELFCARE - Discharge Diagnoses (1) Hydronephrosis Status: Acute Qualifiers: Hydronephrosis type: with renal calculous obstruction Qualified Code(s): N13.2 - Hydronephrosis with renal and ureteral calculous obstruction Comment: Stent placed follow up with dr cosme (2) Renal colic on left side Status: Acute (3) Ureterolithiasis Status: Acute Core Measure Documentation - Palliative Care Palliative Care/ Comfort Measures: Not Applicable - Core Measures Any of the following diagnoses?: none Exam - Constitutional Vitals: Temp Pulse Resp BP Pulse Ox 98.6 F 66 14 123/67 96 11/02/17 11:59 11/02/17 12:30 11/02/17 12:30 11/02/17 12:30 11/02/17 12:30 General appearance: Present: no acute distress, well-nourished - EENT Eyes: Present: PERRL ENT: hearing intact, clear oral mucosa - Neck Neck: Present: supple, normal ROM - Respiratory Respiratory effort: normal Respiratory: bilateral: CTA - Cardiovascular Heart Sounds: Present: S1 & S2. Absent: rub, click - Extremities Extremities: pulses symmetrical, No edema Peripheral Pulses: within normal limits - Abdominal General gastrointestinal: Present: soft, non-tender, non-distended, normal bowel sounds Female genitourinary: Present: normal - Integumentary Integumentary: Present: clear, warm, dry - Musculoskeletal Musculoskeletal: gait normal, strength equal bilaterally - Psychiatric Psychiatric: appropriate mood/affect, intact judgment & insight - Neurologic Neurologic: CNII-XII intact, moves all extremities Plan Activity: no restrictions, advance as tolerated Weight Bearing Status: Full Weight Bearing Diet: low carbohydrate Follow up with: CLAIRE ARMSTRONG MD [Staff Physician] - 7 Days PHOENIX LANIER MD [Primary Care Provider] - 7 Days
[2017-11-02 13:22] VITALS: BP 124/68
--- NOTE | 2017-11-02 13:37 | Post Anesthesia Evaluation ---
- Post Anesthesia Evaluation Patient Participated: Yes Airway Patent: Yes Stable Respiratory Function: Yes Nausea/Vomiting: No Temp > 96.8F: Yes Pain Manageable: Yes Adequeate Hydration: Yes Anesthesia Complications: No
--- NOTE | 2017-11-02 15:24 | Fluoroscopy Report ---
FLUOROSCOPY RETROGRADE UROGRAPHY FLUOROSCOPY URETER/NEPHROSTOMY DILATATION LEFT History: Left ureteral stones. Findings: Fluoroscopy was provided by radiology during retrograde urography by the urologist. 7 fluoroscopic images were captured. The images demonstrate filling defects in the distal left ureter consistent with stones. Subsequent images demonstrate placement of a left ureteral stent which is in good position on the final image. Please correlate with the procedural report by Dr. Jasso. Impression: Distal left renal stones. Left ureteral stent placement.
== END 2017-11-02 15:00 | disposition home or self-care (01) | DRG 682 ==
LOC: ED 10:45 → 3A 16:10
PROVIDERS: ADMIT Internal Medicine; ATTEND Internal Medicine
PROC: 3E0234Z Introduction of Serum, Toxoid and Vaccine into Muscle, Percutaneous Approach (ICD-10-PCS; 2017-10-30)
PROC: 0T778DZ Dilation of Left Ureter with Intraluminal Device, Via Natural or Artificial Opening Endoscopic (ICD-10-PCS; principal; 2017-11-02)
PROC: BT1F1ZZ Fluoroscopy of Left Kidney, Ureter and Bladder using Low Osmolar Contrast (ICD-10-PCS; 2017-11-02)
DX: N17.9 Acute kidney failure, unspecified (principal); K65.9 Peritonitis, unspecified; N13.8 Other obstructive and reflux uropathy; N13.2 Hydronephrosis with renal and ureteral calculous obstruction; I10 Essential (primary) hypertension; Z23 Encounter for immunization; Z87.442 Personal history of urinary calculi; Z90.710 Acquired absence of both cervix and uterus; Z82.49 Family history of ischemic heart disease and other diseases of the circulatory system
CPT/HCPCS: 36415; 74420; 78707; 80048; 81001; 82962; 85025; 87086; 90686; 90732; A9562; C1726; C1758; C1769; C2617; J1170; J1200; J1956; J2250; J2405; J2704; J7030; Q0162; Q9967

== ENCOUNTER 2017-11-10 11:37 | Inpatient (IN) | payer OTHER ==
[2017-11-10 14:36] LABS: Basophils # (Auto) 0.1 K/mm3 (0.0-0.1); Basophils % (Auto) 1.9 % (0.0-1.8); Eosinophils # (Auto) 0.1 K/mm3 (0.0-0.4); Eosinophils % (Auto) 1.7 % (0.0-4.3); Hematocrit 32.7 % (30.3-42.9); Hemoglobin 10.5 gm/dl (10.1-14.3); Lymphocytes # (Auto) 1.2 K/mm3 (1.2-5.4); Lymphocytes % (Auto) 30.4 % (13.4-35.0); Mean Corpuscular HGB Conc 32 % (30-34); Mean Corpuscular Hemoglobin 27 pg (28-32); Mean Corpuscular Volume 84 fl (79-97); Monocytes # (Auto) 0.5 K/mm3 (0.0-0.8); Platelet Count 305 K/mm3 (140-440); Red Blood Count 3.91 M/mm3 (3.65-5.03); Red Cell Distribution Width 14.1 % (13.2-15.2)
[2017-11-10 15:07] LABS: Alanine Aminotransferase 6 units/L (7-56); Albumin 3.7 g/dL (3.9-5); BUN/Creatinine Ratio 19; Blood Urea Nitrogen 17 mg/dL (7-17); Calcium 8.3 mg/dL (8.4-10.2); Hemolysis Index 10
[2017-11-10] MEDS ORDERED: ZOFRAN IV ONE (16:23)
[2017-11-10] MEDS ORDERED: AMBIEN PO PRN (16:28)
--- NOTE | 2017-11-10 16:28 | History and Physical Report ---
History of Present Illness Date of admission: 11/10/17 12:39 Chief complaint: My back hurts History of present illness: 52 YO Female with Nephrolithiasis S/P Left renal stent placement. Pt admitted directly to medical floor, at the request of Dr. Akbar Álvarez. Pt states that she has been experiencing pain in her left flank as well as multiple episodes of nausea and vomiting, for the past 5 days with worsening symptoms over the past 1 day. Pt states that pain is constant, 4-6/10, localized to the left flank , without exacerbating, or alleviating factors. Pt seen and evaluated upon arrival. Pt acknowledges persistent pain. Pt denies fever, chills, CP, Palpitations, productive cough, brbpr, recent ill contacts. No reported nursing events. Urology consulted prior to arrival. Past History Past Medical History: other (nephrolithiasis) Past Surgical History: hysterectomy, bowel surgery, Other (Nephrolithiasis) Social history: single. denies: smoking, alcohol abuse, prescription drug abuse Family history: hypertension Medications and Allergies Allergies Allergy/AdvReac Type Severity Reaction Status Date / Time No Known Allergies Allergy Unverified 10/28/17 18:20 Home Medications Medication Instructions Recorded Confirmed Last Taken Type Estradiol [Estrace] 1 mg PO DAILY 10/29/17 10/29/17 10/28/17 History Ondansetron [Zofran Odt] 4 mg PO TID PRN #10 tab.rapdis 10/29/17 10/29/17 Rx Zolpidem [Ambien] 10 mg PO QHS 10/29/17 10/29/17 10/28/17 History oxyCODONE /ACETAMINOPHEN [Percocet 1 tab PO Q6HR PRN #10 tablet 10/29/1710/28/17 Rx 5/325] Active Meds: Active Medications Diphenhydramine HCl (Benadryl) 25 mg IV ONCE ONE Stop: 11/10/17 16:25 Diphenhydramine HCl (Benadryl) 25 mg IV Q6H PRN PRN Reason: Itching Hydromorphone HCl (Dilaudid) 1 mg IV ONCE ONE Stop: 11/10/17 16:23 Hydromorphone HCl (Dilaudid) 1 mg IV Q4H PRN PRN Reason: Pain , Severe (7-10) Ondansetron HCl (Zofran) 4 mg IV ONCE ONE Stop: 11/10/17 16:24 Ondansetron HCl (Zofran) 4 mg IV Q8H PRN PRN Reason: Nausea And Vomiting Zolpidem Tartrate (Ambien) 10 mg PO QHS PRN PRN Reason: Insomnia Review of Systems Constitutional: no weight loss, no weight gain, no fever, no chills Ears, nose, mouth and throat: no ear pain, no ear discharge, no tinnitis, no decreased hearing, no nose pain, no nasal congestion Breasts: no change in shape, no swelling, no mass, no discharge, no pain Cardiovascular: no chest pain, no orthopnea, no palpitations, no rapid/ irregular heart beat, no edema, no shortness of breath Respiratory: no cough, no cough with sputum, no excessive sputum, no hemoptysis , no shortness of breath Gastrointestinal: nausea, vomiting, no abdominal pain Genitourinary Female: flank pain, no dysmenorrhea, no pelvic pain, no menorrhagia, no dysuria, no urinary frequency, no urgency, no stress incontinence, no post void dribbling, no incomplete emptying Rectal: no pain, no incontinence, no bleeding Musculoskeletal: no neck stiffness, no neck pain, no shooting arm pain, no arm numbness/tingling Integumentary: no rash, no pruritis, no redness, no sores, no wounds, no jaundice Neurological: no head injury, no transient paralysis, no paralysis, no weakness , no parathesias, no numbness, no tingling Psychiatric: no memory loss, no change in sleep habits, no sleep disturbances, no insomnia, no hypersomnia, no change in appetite, no suicidal ideation Endocrine: no cold intolerance, no heat intolerance, no polyphagia, no excessive thirst, no polydipsia, no polyuria, no nocturia, no excessive sweating , no weight change Hematologic/Lymphatic: no easy bruising, no easy bleeding, no lymphadenopathy, no lymphedema Allergic/Immunologic: no urticaria, no allergic rhinitis, no wheezing, no persistent infections, no anaphylaxis, no angioedema Exam - Constitutional General appearance: Present: mild distress - EENT Eyes: Present: PERRL ENT: hearing intact, clear oral mucosa - Neck Neck: Present: supple, normal ROM - Respiratory Respiratory effort: normal Respiratory: bilateral: CTA - Cardiovascular Heart Sounds: Present: S1 & S2. Absent: rub, click - Abdominal General gastrointestinal: Present: soft, non-tender, non-distended, normal bowel sounds Female genitourinary: Present: normal - Integumentary Integumentary: Present: clear, warm, dry - Musculoskeletal Musculoskeletal: gait normal, strength equal bilaterally - Psychiatric Psychiatric: appropriate mood/affect, intact judgment & insight - Neurologic Neurologic: CNII-XII intact, moves all extremities Results - Labs CBC & Chem 7: 11/10/17 14:02 11/10/17 14:02 Labs: Abnormal lab results 11/10/17 11/10/17 Range/Units 14:02 14:02 WBC 4.0 L (4.5-11.0) K/mm3 MCH 27 L (28-32) pg [place] % (Auto) 13.0 H (0.0-7.3) % Baso % (Auto) 1.9 H (0.0-1.8) % Calcium 8.3 L (8.4-10.2) mg/dL ALT 6 L (7-56) units/L Albumin 3.7 L (3.9-5) g/dL Assessment and Plan - Patient Problems (1) Obstructive uropathy Current Visit: Yes Status: Acute Plan to address problem: IV abx, IVF, supportive care, urology consulted, Pending surgical intervention in AM. (2) Pyelonephritis Current Visit: Yes Status: Acute Plan to address problem: IV abx, IVF resuscitation, monitor uop q shift, (3) Renal colic on left side Current Visit: No Status: Acute Plan to address problem: Urology consulted, Pending surgical intervention in AM. (4) DVT prophylaxis Current Visit: Yes Status: Acute
[2017-11-10] MEDS ORDERED: BENADRYL IV ONE (17:00)
[2017-11-10] MEDS ORDERED: DILAUDID IV ONE (17:00)
[2017-11-10] MEDS: DILAUDID IV PRN (22:47)
[2017-11-10] MEDS: BENADRYL IV PRN (22:48)
[2017-11-11] MEDS: DILAUDID IV PRN ×3 (03:00→12:57)
[2017-11-11] MEDS: BENADRYL IV PRN ×2 (06:53→12:56)
[2017-11-11] MEDS: ZOFRAN IV PRN ×2 (07:13→19:46)
--- NOTE | 2017-11-11 10:01 | Progress Note ---
Assessment and Plan Assessment and plan: Directly admitted by Dr. Campbell yesterday. -Acute pyelonephritis: initiated first dose of iv abx and ordered ivf, -Obstructive uropathy due to Nephrolithiasis: Urology for intervention today History Interval history: Patient seen and examined. Still with flank pains bilateral and nausea. No vomiting, cp, sob Hospitalist Physical - Constitutional Vitals: Temp Pulse Resp BP Pulse Ox 98.3 F 73 16 105/46 96 11/11/17 07:43 11/11/17 07:43 11/11/17 07:43 11/11/17 07:43 11/11/17 07:43 General appearance: Present: no acute distress. Absent: mild distress - EENT Eyes: Present: PERRL, EOM intact ENT: hearing intact, clear oral mucosa, dentition normal - Neck Neck: Present: supple, normal ROM - Respiratory Respiratory: bilateral: CTA - Cardiovascular Rhythm: regular Heart Sounds: Present: S1 & S2 - Extremities Extremities: no ischemia, pulses intact - Abdominal General gastrointestinal: soft, non-distended, normal bowel sounds, other ( bilateral CVA tenderness without paraspinal tenderness) - Integumentary Integumentary: Present: clear, warm, dry - Psychiatric Psychiatric: appropriate mood/affect - Neurologic Neurologic: CNII-XII intact, no focal deficits, moves all extremities Results - Labs CBC & Chem 7: 11/10/17 14:02 11/10/17 14:02 Labs: Laboratory Last Values WBC 4.0 K/mm3 (4.5-11.0) L 11/10/17 14:02 RBC 3.91 M/mm3 (3.65-5.03) 11/10/17 14:02 Hgb 10.5 gm/dl (10.1-14.3) 11/10/17 14:02 Hct 32.7 % (30.3-42.9) 11/10/17 14:02 MCV 84 fl (79-97) 11/10/17 14:02 MCH 27 pg (28-32) L 11/10/17 14:02 MCHC 32 % (30-34) 11/10/17 14:02 RDW 14.1 % (13.2-15.2) 11/10/17 14:02 Plt Count 305 K/mm3 (140-440) 11/10/17 14:02 Lymph % (Auto) 30.4 % (13.4-35.0) 11/10/17 14:02 [place] % (Auto) 13.0 % (0.0-7.3) H 11/10/17 14:02 Eos % (Auto) 1.7 % (0.0-4.3) 11/10/17 14:02 Baso % (Auto) 1.9 % (0.0-1.8) H 11/10/17 14:02 Lymph # 1.2 K/mm3 (1.2-5.4) 11/10/17 14:02 [place] # 0.5 K/mm3 (0.0-0.8) 11/10/17 14:02 Eos # 0.1 K/mm3 (0.0-0.4) 11/10/17 14:02 Baso # 0.1 K/mm3 (0.0-0.1) 11/10/17 14:02 Seg Neutrophils % 53.0 % (40.0-70.0) 11/10/17 14:02 Seg Neutrophils # 2.1 K/mm3 (1.8-7.7) 11/10/17 14:02 Sodium 144 mmol/L (137-145) 11/10/17 14:02 Potassium 4.4 mmol/L (3.6-5.0) 11/10/17 14:02 Chloride 104.4 mmol/L (98-107) 11/10/17 14:02 Carbon Dioxide 25 mmol/L (22-30) 11/10/17 14:02 Anion Gap 19 mmol/L 11/10/17 14:02 BUN 17 mg/dL (7-17) 11/10/17 14:02 Creatinine 0.9 mg/dL (0.7-1.2) 11/10/17 14:02 Estimated GFR > 60 ml/min 11/10/17 14:02 BUN/Creatinine Ratio 19 % 11/10/17 14:02 Glucose 84 mg/dL (65-100) 11/10/17 14:02 Calcium 8.3 mg/dL (8.4-10.2) L 11/10/17 14:02 Total Bilirubin 0.30 mg/dL (0.1-1.2) 11/10/17 14:02 AST 11 units/L (5-40) 11/10/17 14:02 ALT 6 units/L (7-56) L 11/10/17 14:02 Alkaline Phosphatase 60 units/L (35-129) 11/10/17 14:02 Total Protein 6.6 g/dL (6.3-8.2) 11/10/17 14:02 Albumin 3.7 g/dL (3.9-5) L 11/10/17 14:02 Albumin/Globulin Ratio 1.3 % 11/10/17 14:02
[2017-11-11] MEDS ORDERED: NACL 0.9% 1000 ML 1,000 ML IV SCH (11:00)
[2017-11-11] MEDS ORDERED: ZOSYN/NS 4.5GM/100ML 4.5 GM/100 ML VIAL IV SCH (12:00)
--- NOTE | 2017-11-11 15:43 | Anesthesia Day of Surgery ---
Anesthesia Day of Surgery - Day of Surgery Patient Examined: Yes Patient H&P Reviewed: Yes Patient is NPO: Yes
--- NOTE | 2017-11-11 15:43 | Anesthesia Consultation ---
Anesthesia Consult and Med Hx Date of service: 11/11/17 - Airway Anesthetic Teeth Evaluation: Good ROM Head & Neck: Adequate Mental/Hyoid Distance: Adequate Mallampati Class: Class II - Pre-Operative Health Status ASA Pre-Surgery Classification: ASA2 Proposed Anesthetic Plan: General - Pulmonary Hx Smoking: No Hx Asthma: No COPD: No Hx Pneumonia: No Hx Sleep Apnea: No - Cardiovascular System Hx Hypertension: Yes (per chart. patient denies) - Central Nervous System Hx Psychiatric Problems: No - Endocrine Hx Renal Disease: Yes (left hydronephrosis. nephrolithiasis) Hx End Stage Renal Disease: No - Other Systems Hx Cancer: No
[2017-11-11] MEDS ORDERED: PEPCID IV NR (16:00)
[2017-11-11] MEDS ORDERED: VERSED IV NR (16:00)
--- NOTE | 2017-11-11 16:10 | Post Operative Note ---
Date of procedure: 11/11/17 Pre-op diagnosis: l ureteral stones Post-op diagnosis: same Findings: huge stones Procedure: cyto rpg ureteroscopy laser stone extraction stent x change Anesthesia: CATALINAA Surgeon: CLAIRE ARMSTRONG Estimated blood loss: none Pathology: list (stones) Specimen disposition: given to patient/family Condition: stable Disposition: PACU
[2017-11-11] MEDS ORDERED: DIPRIVAN 10 MG/ML IV ONE (16:46)
[2017-11-11] MEDS ORDERED: OMNIPAQUE 300 MG/50 ML (CATH LAB) IV ONE (16:59)
[2017-11-11] MEDS ORDERED: XYLOCAINE MPF 2% ONE (17:23)
[2017-11-11] MEDS ORDERED: ePHEDrine SULFATE ONE (17:24)
[2017-11-11] MEDS ORDERED: DECADRON ONE (17:30)
[2017-11-11] MEDS ORDERED: ZOFRAN ONE (17:30)
--- NOTE | 2017-11-11 18:00 | Discharge Summary ---
Short Stay Discharge Plan Activity: other (no straining ) Weight Bearing Status: Full Weight Bearing Diet: regular Special Instructions: other (inc fluids ) Follow up with: EDVIN CHAVEZ MD [Primary Care Provider] - 7 Days CLAIRE ARMSTRONG MD [Staff Physician] - 7 Days
--- NOTE | 2017-11-11 19:03 | Discharge Summary ---
Providers - Providers Date of Admission: 11/10/17 12:39 Date of discharge: 11/11/17 Attending physician: CASSIUS LATIF 11/10/17 11:46 Consult to Physician [CONS] Routine Consulting Provider: CLAIRE ARMSTRONG Reason For Exam: OBSTRUCTIVE UROPATHY, ACUTE PYELONEPHRITIS Place consult to:: . Notified:: . Phone number called:: cell Primary care physician: DEVIN CHAVEZ Hospitalization Hospital course: Directly admitted by Dr. Campbell yesterday. -Acute pyelonephritis or sepsis ruled out, normal wbc, no fevers, d/c planning per Urology -Obstructive uropathy due to Nephrolithiasis: Urology for intervention today Date of procedure: 11/11/17 Pre-op diagnosis: l ureteral stones Post-op diagnosis: same Findings: huge stones Procedure: cyto rpg ureteroscopy laser stone extraction stent x change Anesthesia: GETA Surgeon: CLAIRE ARMSTRONG Estimated blood loss: none Pathology: list (stones) Specimen disposition: given to patient/family Condition: stable Disposition: PACU Disposition: DC- TO HOME OR SELFCARE Time spent for discharge: 34 minutes Core Measure Documentation - Palliative Care Palliative Care/ Comfort Measures: Not Applicable - Core Measures Any of the following diagnoses?: none - VTE Discharge Requirements Deep Vein Thrombosis/Pulmonary Embolism Present on Admission: No Has pt received <5 days of overlap therapy or INR<2.0: No Anticoagulant overlap therapy prescribed at discharge: No Contraindication No Overlap Therapy order at DC: Not Indicated Exam - Physical Exam Narrative exam: GEN: WDWN, NAD, AWAKE, ALERT, ORIENTATED 3 HEENT: NCAT, EOMI, PERRL, OP Clear NECK: supple, no adenopathy, no thyromegaly, no JVD CVS/HEART: RRR, NORMAL S1S2, pulses present bilaterally CHEST/LUNGS: CTA B, Symmetrical chest expansion, good air entry bilaterally GI/Abdomen: soft, NTND, good bowel sounds, no guarding or rebound /Bladder: no suprapubic tenderness, + CVA or paraspinal tenderness EXT/Skin: no c/c/e, no obvious rash MSK: FROM x 4 Neuro: CN 2-12 grossly intact, no new focal deficits Psych: calm - Constitutional Vitals: Temp Pulse Resp BP Pulse Ox 98.4 F 75 10 L 121/62 97 11/11/17 18:00 11/11/17 18:30 11/11/17 18:30 11/11/17 18:30 11/11/17 18:30 Plan Activity: other (no strenous activity until cleared by pcp) Diet: regular Follow up with: CLAIRE ARMSTRONG MD [Staff Physician] - 7 Days DEVIN CHAVEZ MD [Primary Care Provider] - 7 Days
--- NOTE | 2017-11-11 19:06 | Post Anesthesia Evaluation ---
- Post Anesthesia Evaluation Patient Participated: Yes Airway Patent: Yes Stable Respiratory Function: Yes Nausea/Vomiting: No Temp > 96.8F: Yes Pain Manageable: Yes Adequeate Hydration: Yes Anesthesia Complications: No Block Receding Appropriately: Not Applicable Patient on Ventilator: No
[2017-11-11 19:35] VITALS: BP 123/69
--- NOTE | 2017-11-11 22:18 | Operative Report ---
PREOPERATIVE DIAGNOSES: Severe left hydronephrosis, previous sepsis almost a destroyed kidney from about 10 months of non-treated stone. POSTOPERATIVE DIAGNOSES: Severe left hydronephrosis, previous sepsis almost a knot destroyed kidney from about 10 months of a nontreated stone. PROCEDURE: Cystoscopy, left retrograde, left ureteroscopy, ureteroscopic laser treatment of stone extraction, multiple fragments and reinsertion double-J stent. SURGEON: Rusty Jasso MD ANESTHESIA: General. FINDINGS: This is a woman who has had a stone for almost 10 months. She did not go to treatment. She could not get covered. She came here. She had fevers. A stent was placed and lots of purulent debris was obtained. At this point, she is stable, she now presents for admission for pain and treatment. DESCRIPTION OF PROCEDURE: The patient brought to the operating room and placed on the operating table. Following induction of anesthesia, placed in lithotomy position, prepped and draped in usual sterile fashion. The stent was seen and exchanged over a wire. Lower ureteroscopy revealed two separate stones, which were extracted. The larger stone, which was about 1 cm was at the junction of the lower and mid ureter, had to be fragmented in about 8 pieces. These were removed. The retrograde showed the ureter to be intact. There was almost a bifid system. A 6-Irish double J coiled in the kidney and bladder. The patient tolerated the procedure well. No significant complication. We left the string. She was brought to recovery in stable condition. JOB# [id number] ROB/ROSCOE
--- NOTE | 2017-11-12 07:49 | Fluoroscopy Report ---
FLUORO RETROGRADE UROGRAPHY INDICATION: Left ureteral calculi. Acute pyelonephritis. COMPARISON: 11/02/2017. FINDINGS: Total of 7 submitted fluoroscopic images. Procedure performed by Dr. Jasso. Omnipaque 300 utilized. Initial tour counselor radiographs obtained at 5:55 PM demonstrate left ureteral wire and nonvisualization of left ureteral stent. Few pelvic phleboliths. Multiple small aggregated calculi at the lower pole of the left kidney again noted as also mostly left suprarenal and infrarenal surgical clips. Nonobstructive bowel gas pattern. Subsequently, left ureteroscopy performed. Opacified left proximal to mid ureter slightly prominent without suspicious filling defects. Mild hydronephrosis/dilatation of the left lower renal pole also noted. Remainder intrarenal collecting system not opacified. A nonspecific faint ringlike density again projects between the left 11th and 12th ribs. Final 2 images demonstrate left ureteral stent placement. CONCLUSION: Intraoperative fluoroscopic assistance provided for left ureteroscopy, retrograde pyelogram and ureteral stent placement in this patient with left nephrolithiasis, mild left hydroureteronephrosis and left hemiabdomen postsurgical changes, as above. Please also correlate with procedural notes. Thank you for the opportunity to participate in this patient's care.
== END 2017-11-11 20:08 | disposition home or self-care (01) | DRG 669 ==
LOC: 3A 11:37 → UNDOADMIN 11:37 → 3A 12:39
PROVIDERS: ADMIT Internal Medicine; ATTEND Internal Medicine
PROC: 0TC78ZZ Extirpation of Matter from Left Ureter, Via Natural or Artificial Opening Endoscopic (ICD-10-PCS; principal; 2017-11-11)
PROC: BT1F1ZZ Fluoroscopy of Left Kidney, Ureter and Bladder using Low Osmolar Contrast (ICD-10-PCS; 2017-11-11)
PROC: 0T778DZ Dilation of Left Ureter with Intraluminal Device, Via Natural or Artificial Opening Endoscopic (ICD-10-PCS; 2017-11-11)
PROC: 0TP98DZ Removal of Intraluminal Device from Ureter, Via Natural or Artificial Opening Endoscopic (ICD-10-PCS; 2017-11-11)
DX: N13.2 Hydronephrosis with renal and ureteral calculous obstruction (principal); N13.8 Other obstructive and reflux uropathy; Z87.442 Personal history of urinary calculi; Z82.49 Family history of ischemic heart disease and other diseases of the circulatory system; Z90.710 Acquired absence of both cervix and uterus; I10 Essential (primary) hypertension
CPT/HCPCS: 36415; 74420; 80053; 85025; J1100; J1170; J1200; J2250; J2405; J2543; J2704; J7030; Q9967

== ENCOUNTER 2018-01-13 10:35 | Outpatient (CLI) | payer OTHER ==
--- NOTE | 2018-01-13 15:02 | Fluoroscopy Report ---
FLUOROSCOPY NEPHROSTOGRAM EXISTING LEFT History: Calculus of kidney. Findings: 9 fluoroscopic images were captured during this exam. Informed consent was obtained. Sterile technique was utilized. [employer] Administrator film of the abdomen demonstrates a nephrostomy tube in the left upper quadrant. There is also an approximate 1 cm calcification overlying the inferior pole left kidney. Approximately 20 cc of Omnipaque-300 was injected through the left nephrostomy tube. There is prompt visualization of the left renal calyces, pelvis and ureter. There is no evidence for stricture, filling defect or obstruction. There is easy passage of the contrast into the bladder. The infundibulum leading to the lower pole calyx and the left kidney is very small in size measuring only 1-2 mm in diameter. Impression: Left renal calculus as described. No evidence for stricture or filling defect within the left renal collecting system. Easy passage of contrast agent into the bladder.
== END 2018-01-13 10:36 | disposition home or self-care (01) ==
LOC: FLUORO 10:35
PROVIDERS: ATTEND Urology
DX: N20.0 Calculus of kidney (principal); Z93.6 Other artificial openings of urinary tract status
CPT/HCPCS: 50431; Q9967